=== PATIENT | male | born 1980 | race Two or more races ===

== ENCOUNTER 2017-11-30 19:54 | Emergency (ER) | payer SELFPAY ==
[~2017-11-30] VITALS: Ht 167.6 cm; Wt 72.0 kg
[2017-11-30 23:06] VITALS: BP 121/77
== END 2017-11-30 23:09 | disposition home or self-care (01) ==
LOC: ER 19:54
DX: R07.9 Chest pain, unspecified (principal); R11.0 Nausea; I20.9 Angina pectoris, unspecified
CPT/HCPCS: 99283